=== PATIENT | male | born 1940 | race Caucasian/White ===

== ENCOUNTER → 2020-08-03 09:02 | Outpatient (CLI) | payer OTHER, MEDICARE, SELFPAY ==
--- NOTE | 2020-08-03 09:04 | CA_ITS ---
APPROVED REPORT EXAM: Comprehensive 2D, Doppler, and color-flow Echocardiogram Medical Sales Specialist: Piedad Rogers RT(R) Ht: 6 ft 3 in Wt: 222lbs BSA: 2.29 BP: 150/76 mmHg Indications: SOA,HOME O2,HTN,EDEMA,PACER,CABG,STENTS,CAD,PHTN,A-FIB,PRE-OP 2D Dimensions LVOT 2.01 cm (M/F) 1.5-2.5 M-Mode Dimensions RVDd 2.40 cm (0.9-2.6) LA Diam 5.73 cm (1.9-4.0) LVDd 4.87 cm (3.5-5.7) Ao Diam 4.40 cm (2.0-3.7) LVDs 3.44 cm (3.5-5.7) IVSd 0.97 cm (0.6-1.1) PWd 1.01 cm (0.6-1.1) EF (Teich) 56.10% FS 29.40% EDV (Teich) 111.20 mL ESV (Teich) 48.80 mL LV Diastology E Decel Time 200.00 (160-240 msec) E/A Ratio 4.3 MED E' 3.60 (< 7 cm/sec) E'/MED E' Ratio 26.25 (>14) LAT E' 2.80 (<10 cm/sec) E/LAT E' Ratio 33.75 (>14) Mitral Valve MV E Max Yo. 95.00 (40-130 cm/s) MV A Velocity 22.00 (40-130 cm/s) E/A Ratio 4.38 MV Decel. Time 200.00 (160-240 ms) MV PHT 59.00 ms Pulmonary Valve PV Peak Velocity 81.00 (50-150 cm/s) Left Ventricle Left atrium is mildly enlarged, left ventricle is normal size, mild concentric left ventricular hypertrophy, visually estimated ejection fraction 50%, there is mild hypokinesis involving the distal septum and apical wall. Diastolic parameters are inconclusive. Right Ventricle Right atrium and right ventricle are mildly enlarged with normal contractility, there is a pacemaker lead seen right atrium and right ventricle. Aortic Valve Aortic valve is minimally thickened and fibrosed, there is no aortic stenosis, there is mild aortic insufficiency. Mitral Valve Mitral valve leaflets are minimally thickened, there is no mitral stenosis, there is mild mitral regurgitation. Tricuspid Valve Tricuspid valve is grossly normal, there is mild tricuspid regurgitation. Tricuspid regurgitation jet velocity is inadequate for calculation of the right ventricular systolic pressure. Pulmonic Valve Pulmonic valve is poorly visualized. Great Vessels Aortic root is normal size. Pericardium No significant pericardial effusion noted. Conclusion 1. Mild biatrial enlargement, normal left ventricular size, mild concentric left ventricular hypertrophy, visually estimated ejection fraction 50% with segmental wall motion abnormality described above, diastolic parameters are inconclusive. 2. Mildly enlarged right ventricle with normal contractility. 3. Mild aortic, mild mitral and tricuspid regurgitation. 4. No significant pericardial effusion noted. Electronically signed by : Ramiro Patel, 08/04/2020 15:25:16
== END ==
PROVIDERS: Visit Provider Urology
DX: I11.9 Hypertensive heart disease without heart failure (principal); I25.10 Atherosclerotic heart disease of native coronary artery without angina pectoris; I48.91 Unspecified atrial fibrillation; Z95.810 Presence of automatic (implantable) cardiac defibrillator; R06.00 Dyspnea, unspecified
CPT/HCPCS: 93306